=== PATIENT | male | born 1980 | race Caucasian/White ===

== ENCOUNTER 2021-06-04 12:21 | Emergency (ER) | payer OTHER ==
[2021-06-04 13:09] VITALS: BP 125/84; PULSE 54; TEMP 97.8; BMI 53.2
[2021-06-04] MEDS ORDERED: diazePAM 5 MG TABLET PO ONE (13:33)
[2021-06-04] MEDS ORDERED: diazePAM 5 MG TABLET ONE (13:40)
== END 2021-06-04 13:53 | disposition home or self-care (01) ==
LOC: JERFT 12:21
DX: Z04.1 Encounter for examination and observation following transport accident (principal); V89.2XXA Person injured in unspecified motor-vehicle accident, traffic, initial encounter; Y92.9 Unspecified place or not applicable
CPT/HCPCS: 99283-25

== ENCOUNTER 2023-01-11 12:01 | Emergency (ER) | payer BC, OTHER ==
[2023-01-11 12:10] VITALS: BP 128/61; PULSE 56; RESP 18; TEMP 98.4; BMI 53.8
== END 2023-01-11 16:23 | disposition home or self-care (01) ==
LOC: JERFT 12:01
DX: R10.10 Upper abdominal pain, unspecified (principal); K43.9 Ventral hernia without obstruction or gangrene; K42.9 Umbilical hernia without obstruction or gangrene
CPT/HCPCS: 74176-TC; 99284-25

== ENCOUNTER 2023-03-08 00:33 | Emergency (ER) | payer BC ==
[2023-03-08 00:49] VITALS: BMI 52.6
[2023-03-08] MEDS ORDERED: ONDANSETRON 4 MG/2 ML VIAL IVPUSH ONE (02:29)
[2023-03-08] MEDS ORDERED: ACETAMINOPHEN 1000 MG/100 ML BAG IVPB ONE (02:29)
[2023-03-08] MEDS ORDERED: ACETAMINOPHEN INJECTION 100 ML IVPB ONE (03:01)
[2023-03-08] MEDS ORDERED: ONDANSETRON 4 MG/2 ML VIAL ONE (03:01)
[2023-03-08 03:34] LABS: BASO % 0.5 % (0-2.0); HEMATOCRIT 45.3 % (35.4-49); HEMOGLOBIN 15.8 GM/dL (11.7-16.9); LYMPH % 24.2 % (8-40); MCH 28.8 pg (25.7-33.7); MCHC 34.8 g/dl (32.0-35.9); MEAN CELL VOLUME 82.8 fl (80-96); MEAN PLT VOLUME 7.3 fl (7.5-11.1); MONO % 8.3 % (3.8-10.2); PLATELET COUNT 334 10^3/uL (134-434); RBC 5.47 M/mm3 (4.00-5.60); RDW 14.2 % (11.9-15.9); WHITE BLOOD COUNT 10.7 K/mm3 (4.0-10.0)
[2023-03-08 03:55] LABS: POTASSIUM 4.3 mmol/L (3.5-5.1)
[2023-03-08 03:57] LABS: ALBUMIN 3.6 g/dl (3.4-5.0); BLOOD UREA NITROGEN 16.4 mg/dL (7-18); CALCIUM 8.9 mg/dL (8.5-10.1); MAGNESIUM 2.1 mg/dL (1.8-2.4)
[2023-03-08 04:00] LABS: CREATININE 1.2 mg/dL (0.55-1.3)
[2023-03-08 04:02] LABS: BILIRUBIN,TOTAL 0.4 mg/dL (0.2-1); TOT PROT 7.1 g/dl (6.4-8.2)
[2023-03-08] MEDS ORDERED: morphine CARPU-JECT 4 MG/1 ML DISP.SYRIN IVPUSH ONE (08:28)
[2023-03-08] MEDS ORDERED: morphine SULFATE 4 MG/ML VIAL ONE (08:36)
[2023-03-08 10:06] VITALS: TEMP 97.6
[2023-03-08 11:44] VITALS: BP 121/76; PULSE 64; RESP 18
== END 2023-03-08 11:44 | disposition home or self-care (01) ==
LOC: JER 00:33
PROC: 3E033NZ Introduction of Analgesics, Hypnotics, Sedatives into Peripheral Vein, Percutaneous Approach (ICD-10-PCS; principal; 2023-03-08)
PROC: 3E033GC Introduction of Other Therapeutic Substance into Peripheral Vein, Percutaneous Approach (ICD-10-PCS; 2023-03-08)
PROC: 3E033GC Introduction of Other Therapeutic Substance into Peripheral Vein, Percutaneous Approach (ICD-10-PCS; 2023-03-08)
DX: R10.9 Unspecified abdominal pain (principal); K43.9 Ventral hernia without obstruction or gangrene
CPT/HCPCS: 36415; 71045-TC-FY; 74177-TC; 80053; 83605; 83690; 83735; 85025; 93005; 93010; 99285-25; Q9967